=== PATIENT | female | born 1955 | race Caucasian/White ===

== ENCOUNTER 2016-07-06 03:35 | Inpatient (IN) | payer OTHER ==
[~2016-07-06] VITALS: Ht 157.5 cm; Wt 83.0 kg
[2016-07-06 03:48] VITALS: BP 139/87
--- NOTE | 2016-07-06 03:57 | NUR ---
PATIENT WHEELCHAIR ASSISTED TO ER BED 02
--- NOTE | 2016-07-06 03:58 | NUR ---
61 YEAR OLD FEMALE C/O LOWER ABD PAIN RADIATION TO BACK AND BLE X3 WEEKS, PER PATINET HAS BEEN SEEN BY DR. LONGORIA FOR OVARIAN CYST. NO SOB/DISTRESS NOTED, ED EVALATES AT BEDSIDE.
[2016-07-06] MEDS ORDERED: fentaNYL 0.05 MG/ML VIAL IVP ONE (04:15)
[2016-07-06] MEDS ORDERED: NACL 0.9% 1,000 ML IV ONE (04:15)
[2016-07-06] MEDS ORDERED: GLUCOTROL10 MG PO (04:37)
[2016-07-06] MEDS ORDERED: GLUCOPHAGE XR500 MG PO (04:37)
[2016-07-06] MEDS ORDERED: TOPROL XL25 MG PO (04:37)
[2016-07-06] MEDS ORDERED: BENICAR40 MG PO (04:37)
[2016-07-06] MEDS ORDERED: NORVASC10 MG PO (04:37)
--- NOTE | 2016-07-06 04:46 | NUR ---
TRANSFER BACK FROM US.
--- NOTE | 2016-07-06 04:56 | NUR ---
Patient will be admitted to care of DR. Roddy LONGORIA. Admited to MED-S[facility]. Will go to room 111A. Belongings list completed. Report to LEATHA SANCHEZ.
[2016-07-06] MEDS ORDERED: ONDANSETRON 4 MG/2 ML VIAL IVP ONE ×2 (05:00→08:49)
[2016-07-06 05:15] VITALS: BP 135/74
--- NOTE | 2016-07-06 05:15 | NUR ---
PT ARRIVED TO UNIT VIA WHEELCHAIR. INITIAL ASSESSMENT COMPLETED. PT AAOX4. PT DENIES PAIN AT THIS TIME. PT'S VS 135/75, HR 72, O2 SAT 96%, R 20, T 98.3. ORIENTED PT TO ROOM AND SURROUNDINGS AND USE OF CALL LIGHT. PT'S SKIN IS INTACT. MRSA DONE AND SENT TO LAB. SAFETY MEASURES IN PLACE, WILL CONTINUE TO MONITOR PT. EXPLAINED PLAN OF CARE TO PT AND SHE VERBALIZES UNDERSTANDING.
--- NOTE | 2016-07-06 06:39 | NUR ---
PT RESTING IN BED NOW, DENIES ANY PAIN, WILL CONTINUE TO MONITOR PT.
--- NOTE | 2016-07-06 07:00 | NUR ---
DR. Jaxson LONGORIA. IN TO SEE PT AND EXPLAINED THE PROCEDURE PT WILL HAVE. CONSENT SIGNED.
--- NOTE | 2016-07-06 07:10 | NUR ---
REPORT GIVEN TO LEATHA Hernandez FOR CONTINUITY OF CARE.
--- NOTE | 2016-07-06 07:11 | NUR ---
RECEIVED REPORT FROM LEATHA SANCHEZ. PT IS AAOX4, PT ON ROOM AIR WITH NO S/S OF DISTRESS NOTED. IV TO RIGHT AC #20, PATENT AND INTACT. NO N/V OR PAIN INDICATED. SKIN INTACT. ALL SAFETY PRECAUTIONS IN PLACE, SIDE RAILSX2, BED IN LOW POSITION, AND CALL LIGHT WITHIN REACH. WILL CONTINUE TO MONITOR.
--- NOTE | 2016-07-06 07:25 | NUR ---
DR LONGORIA IN TO SEE PT. PT TO HAVE SURGERY. WILL FOLLOW UP.
--- NOTE | 2016-07-06 07:38 | NUR ---
PT TAKEN OUT OF UNIT TO SURGERY.
[2016-07-06] MEDS ORDERED: ACETAMINOPHEN/CODEINE 300/30MG 1 TAB PO PRN (07:40)
--- NOTE | 2016-07-06 08:13 | NUR ---
PATIENT HAS BEEN SCREENED AND CATEGORIZED MODERATE NUTRITION RISK. PATIENT WILL BE SEEN WITHIN 3-5 DAYS OF ADMISSION. 07/08/16-07/10/[address]
[2016-07-06] MEDS ORDERED: GLYCOPYRROLATE 0.2 MG/ML VIAL IV ONE (08:49)
[2016-07-06] MEDS ORDERED: ROCURONIUM 50 MG/5 ML VIAL IV ONE (08:49)
[2016-07-06] MEDS ORDERED: KETOROLAC 30 MG/ML VIAL IVP ONE (08:49)
[2016-07-06] MEDS ORDERED: PROPOFOL 200 MG/20 ML VIAL IV ONE (08:49)
[2016-07-06] MEDS ORDERED: DEXAMETHASONE 4 MG/ML VIAL IVP ONE (08:49)
[2016-07-06] MEDS ORDERED: PHENYLEPHRINE 10 MG/ML VIAL IM ONE (08:49)
[2016-07-06] MEDS ORDERED: DESFLURANE 240 ML BTL INH ONE (08:49)
[2016-07-06] MEDS ORDERED: fentaNYL 0.05 MG/ML VIAL ONE (08:50)
[2016-07-06] MEDS ORDERED: HYDROmorphone 1 MG/ML AMP IVP PRN (09:05)
[2016-07-06] MEDS ORDERED: ONDANSETRON 4 MG/2 ML VIAL IVP PRN (09:05)
[2016-07-06] MEDS: BUPIVACAINE-MPF/EPI 0.5% 30 ML VIAL INJ ONE ×2 (09:29→09:33)
[2016-07-06] MEDS: HYDROmorphone PFS 2 MG/ML SYR ONE ×8 (09:33→10:20)
[2016-07-06] MEDS ORDERED: METOCLOPRAMIDE 10 MG/2 ML INJ VIAL IVP PRN (10:20)
[2016-07-06 10:50] VITALS: BP 92/53
--- NOTE | 2016-07-06 10:50 | NUR ---
PT ARRIVED TO UNIT FROM SURGERY. PT IS AAOX4. PT ON ROOM AIR O2 SAT AT 94%. GUERRA CATHETER IN PLACE. DRESSING NOTED TO LOWER ABDOMEN. NO N/V OR PAIN AT THIS TIME. ALL SAFETY PRECAUTIONS IN PLACE, SIDE RAILSX2, BED IN LOW POSITION, AND CALL LIGHT WITHIN REACH. WILL CONTINUE TO MONITOR.
--- NOTE | 2016-07-06 10:55 | NUR ---
PROVIDED PT ORAL CARE, PT COMPLAINING OF DRY MOUTH.
--- NOTE | 2016-07-06 12:22 | NUR ---
PT TOLERATED ICE CHIPS WELL. BP 93/56, HR 61, O2 SAT AT 93%. WILL CONTINUE TO MONITOR.
[2016-07-06] MEDS: ONDANSETRON 4 MG/2 ML VIAL IVP PRN (13:35)
--- NOTE | 2016-07-06 13:38 | NUR ---
COVERING FOR NURSE TAM V RN. IVP ZOFRAN GIVEN FOR NAUSEA. PATIENT TOLERATED WELL. NO SIGN OF DISTRESS NOTED. HEAD OF BED ELEVATED FOR SAFETY. CALL LIGHT WITHIN REACH. NURSE TAM MADE AWARE.
--- NOTE | 2016-07-06 14:16 | NUR ---
PT RESTING WITH NO NAUSEA NOTED AT THIS TIME.
--- NOTE | 2016-07-06 14:43 | NUR ---
CM NOTE INITIAL REVIEW FAXED TO [facility] (FAX# [phone], ATTN: SAKSHI #[phone] [id number]) AND [facility] (FAX# [phone])
--- NOTE | 2016-07-06 14:50 | NUR ---
PT STATED NAUSEA HAS RESOLVED.
--- NOTE | 2016-07-06 15:50 | NUR ---
RECEIVED CALL FROM DR LONGORIA. ORDERED TO ADD PHENERGAN IVP Q4HR PRN FOR NAUSEA, AND NORMAL SALINE 100ML/HR FOR IV FLUIDS. WILL FOLLOW UP ON ORDERS.
[2016-07-06] MEDS: MORPHINE SULFATE 4 MG/ML SYR IM/IVP PRN ×2 (15:51→21:34)
[2016-07-06 16:00] VITALS: BP 111/64
--- NOTE | 2016-07-06 16:00 | NUR ---
PT C/O 10/10 PAIN TO LOWER ABDOMEN. BP 122/60, HR 67. ADMINISTERED MORPHINE ORDERED. WILL CONTINUE TO MONITOR.
[2016-07-06] MEDS: NACL 0.9% 1,000 ML IV SCH (16:20)
[2016-07-06] MEDS: PROMETHAZINE 25 MG/ML VIAL IVP PRN (16:27)
--- NOTE | 2016-07-06 16:38 | NUR ---
PT C/O NAUSEA. ADMINISTERED PHENERGAN ORDERED. PT TOLERATED WELL. WILL CONTINUE TO MONITOR.
--- NOTE | 2016-07-06 17:45 | NUR ---
PT SLEEPING WITH NO DISTRESS NOTED AT THIS TIME.
--- NOTE | 2016-07-06 19:20 | NUR ---
ENDORSED CARE TO LEATHA SANCHEZ. PT IN STABLE CONDITION.
--- NOTE | 2016-07-06 19:35 | NUR ---
RECEIVED REPORT FROM LEATHA Hernandez AT BEDSIDE. PT AAOX4. PT PT ON ROOM AIR, PT HAS GUERRA CATHETER IN PLACE. DRESSING NOTED TO LOWER ABDOMEN DRY AND INTACT S/P SURGICAL PROCEDURE. PT HAS SCDS ON. AT BEDSIDE. ORIENTED PT TO ROOM AND SURROUNDING AND USE OF CALL LIGHT. SAFETY MEASURES IN PLACE. WILL CONTINUE TO MONITOR PT. Addendum: 07/06/16 at 2010 by Corinne Angelo RN PT HAS IV TO RIGHT AC G 20; ASYMPTOMATIC, PATENT AND INTACT INFUSING FLUIDS WELL.
--- NOTE | 2016-07-06 21:33 | NUR ---
PT COMPLAINING OF PAIN 01/22. VS STABLE, WILL MEDICATE ORDERED.
--- NOTE | 2016-07-06 23:36 | NUR ---
PT SLEEPING AT THIS TIME, NO SIGNS OF DISTRESS NOTED. WILL CONTINUE TO MONITOR PT.
[2016-07-07] VITALS: BP 117/67
--- NOTE | 2016-07-07 00:33 | NUR ---
PT COMPLAINING OF PAIN ON SURGERY SITE 12/22. VS STABLE, WILL MEDICATE ORDERED.
[2016-07-07] MEDS: MORPHINE SULFATE 4 MG/ML SYR IM/IVP PRN ×5 (00:36→21:07)
--- NOTE | 2016-07-07 01:18 | NUR ---
PT COMPLAINING OF PAIN 11/21. VS STABLE, WILL GIVE MOTRIN ORDERED. Addendum: 07/07/16 at 0119 by Corinne Angelo RN WRONG ENTRY IN WRONG PT.
[2016-07-07] MEDS: NACL 0.9% 1,000 ML IV SCH ×3 (03:19→22:05)
--- NOTE | 2016-07-07 03:35 | NUR ---
PT REQUESTING SOME ICE CHIPS. WILL PROVIDE HER WITH HER NEEDS. CALL LIGHT WITHIN REACH.
--- NOTE | 2016-07-07 04:43 | NUR ---
PT SLEEPING, NO SIGNS OF DISTRESS NOTED. WILL CONTINUE TO MONITOR PT.
--- NOTE | 2016-07-07 06:15 | NUR ---
LEAD FRONT END DEVELOPER AT BEDSIDE DRAWING MORNING LABS. PT STABLE, WILL CONTINUE TO MONITOR PT.
--- NOTE | 2016-07-07 07:20 | NUR ---
ENDORSED PT IN STABLE CONDITION JEFFREY IKRBY FOR CONTINUITY OF CARE.
--- NOTE | 2016-07-07 07:21 | NUR ---
RECEIVED PT ASLEEP BUT EASILY AWAKEN, LYING ON BED, NO S/S OF RESPIRATORY DISTRESS. AAOX4, WITH IV ON RIGHT AC 20G INFUSING FLUIDS WELL. WITH LOWER ABDOMINAL INCISION COVERED WITH DRY DRESSING, CLEAN AND INTACT. DISCUSSED PLAN OF CARE, PT VERBALIZED UNDERSTANDING. CALL LIGHT WITHIN REACH, WILL CONTINUE TO MONITOR.
[2016-07-07 08:00] VITALS: BP 106/68
--- NOTE | 2016-07-07 11:48 | NUR ---
PT COMPLAINED OF PAIN, MORPHINE GIVEN. O2 SAT AT 93%
--- NOTE | 2016-07-07 11:49 | NUR ---
GUERRA CATHETER DISCONTINUED, PINK TINGE URINE NOTED ON TUBING. PAGED. DR. LONGORIA
--- NOTE | 2016-07-07 13:52 | NUR ---
PT ABLE TO SIT AT EDGE OF BED THEN BACK TO BED. TOLERATED WELL. NOW SITTING ON BED WITH AT BEDSIDE. NO SIGNS OF DISTRESS NOTED. CALL LIGHT WITHIN REACH, WILL CONTINUE TO MONITOR.
--- NOTE | 2016-07-07 15:24 | NUR ---
PT AMBULATED FROM BED TO RESTROOM, WAS NOT ABLE TO URINATE, BACK TO BED AGAIN. COMPLAINED OF PAIN, MORPHINE GIVEN.
[2016-07-07 16:00] VITALS: BP 120/65
--- NOTE | 2016-07-07 17:44 | NUR ---
PT AMBULATED FROM BED TO COMMODE BUT STILL NOT ABLE TO URINATE. ASSISTED PT BACK TO BED.
--- NOTE | 2016-07-07 17:59 | NUR ---
PT UNABLE TO VOID, NOTIFIED DR. Roddy LONGORIA, HOLD THE DISCHARGE ORDER AND INSERT GUERRA CATHETER.
--- NOTE | 2016-07-07 18:19 | NUR ---
GUERRA CATHETER INSERTED, DRAINED 200ML OF YELLOW URINE. O2 SAT AT 88%, PT PUT ON O2 2LPM NC PER ORDERS.
--- NOTE | 2016-07-07 19:30 | NUR ---
ENDORSED PT TO DERICK, PROC TECH IN STABLE CONDITION. O2 SAT AT THIS TIME AT 98% ON O2 2LPM NC
--- NOTE | 2016-07-07 19:31 | NUR ---
RECD. RESTING IN BED, AWAKE, A/OX4. RESPIRATION EVEN AND UNLABORED. ON AT 2 LITERS VIA N/C. IV OF NS AT 100 ML/HR INFUSING. INCISION IN THE LOWER ABDOMEN COVERED WITH DRESSING, DRY AND INTACT. F/C PATENT DRAINING CLEAR YELLOW URINE. PAIN IN THE SITE 05/24, WILL MEDICATE ORDERED. PLAN OF CARE FOR THE SHIFT DISCUSSED. VERBALIZED UNDERSTANDING. ENCOURAGED TO TURN TO SIDES OCCASIONALLY. SAFETY MEASURES ENFORCED.
--- NOTE | 2016-07-07 20:00 | NUR ---
Patient's Plan of Care was discussed and reviewed with FINANCIAL COMPLIANCE EXAMINER: DERICK DALAL
--- NOTE | 2016-07-07 20:30 | NUR ---
CLAIMED SHE IS PASSING GAS BY BURPING, NO BM YET. ENCOURAGED TO AMBULATE MORE.
[2016-07-07] MEDS: ONDANSETRON 4 MG/2 ML VIAL IVP PRN (21:06)
--- NOTE | 2016-07-07 21:06 | NUR ---
NAUSEATED, MEDICATED WITH ZOFRAN 4 MG. IVP BY LEATHA MEYERS.
--- NOTE | 2016-07-07 21:36 | NUR ---
NO NAUSEA NOTED, RESTING COMFORTABLY IN BED.
--- NOTE | 2016-07-07 22:30 | NUR ---
SLEEPING COMFORTABLY IN BED.
[2016-07-08] VITALS: BP 131/66
[2016-07-08] MEDS: PROMETHAZINE 25 MG/ML VIAL IVP PRN ×2 (01:04→13:24)
--- NOTE | 2016-07-08 01:04 | NUR ---
NAUSEATED, MEDICATED PHENERGAN 25 MG. IVP BY CHARGE NURSE ONEIL.
--- NOTE | 2016-07-08 01:35 | NUR ---
NO NAUSEA NOTED, SLEEPING COMFORTABLY IN BED.
[2016-07-08] MEDS: SIMETHICONE 80 MG TAB.CHEW PO PRN ×2 (07:01→16:01)
--- NOTE | 2016-07-08 07:01 | NUR ---
COMPLAINT OF FEELING BLOATED, MEDICATED WITH MYLICON 80 MG. PO.
[2016-07-08] MEDS ORDERED: METOCLOPRAMIDE 10 MG/2 ML INJ VIAL IVP PRN (07:25)
--- NOTE | 2016-07-08 07:30 | NUR ---
DECREASED FEELING OF BLOATED, DR. Roddy LONGORIA CAME AND ORDERED TO DISCONTINUE F/C, AND GIVE REGLAN IV. PATIENT CAN GO HOME IF ABLE TO VOID. ENDORSED TO LEATHA GUNTER FOR CONTINUITY OF CARE.
--- NOTE | 2016-07-08 07:31 | NUR ---
PT RECEIVED FROM CORTNEY SEPULVEDA ASLEEP BUT EASILY AWAKEN, AAOX4, WITH IV ACCESS ON RIGHT AC 20G INFUSING FLUIDS WELL. WITH GUERRA CATHETER DRAINING YELLOWISH URINE. WITH DRY DRESSING ON LOWER ABDOMEN COVERED WITH ABDOMINAL BINDER. WITH O2 2LPM VIA NC. DISCUSSED PLAN OF CARE. PT VERBALIZED UNDERSTANDING. PT COMPLAINS OF NAUSEA, WILL; MEDICATE WITH REGLAN. DR. LONGORIA IN THE ROOM WITH THE PATIENT. CALL LIGHT WITHIN REACH, WILL CONTINUE TO MONITOR.
--- NOTE | 2016-07-08 07:45 | NUR ---
GUERRA CATHETER REMOVED. PT TOLERATED WELL. ASSISTED PT TO CHAIR. ENCOURAGED TO KEEP ON AMBULATING.
[2016-07-08 08:00] VITALS: BP 124/75
[2016-07-08] MEDS: NACL 0.9% 1,000 ML IV SCH ×2 (08:54→17:52)
--- NOTE | 2016-07-08 08:54 | NUR ---
SPOKE TO TEE JACOB TO ADVANCE TO REGULAR DIET.
[2016-07-08] MEDS ORDERED: MUPIROCIN 2% OINT 22 GM TUBE TP SCH (09:00)
[2016-07-08] MEDS ORDERED: CHLORHEXADINE GLUC 2% CLOTH TP SCH (09:00)
--- NOTE | 2016-07-08 10:05 | NUR ---
PT ASLEEP AND LYING ON BED. NO S/S OF DISTRESS. ALL NEEDS MET AT THIS TIME. CALL LIGHT WITHIN REACH, WILL CONTINUE TO MONITOR.
--- NOTE | 2016-07-08 11:10 | NUR ---
PT ABLE TO VOID YELLOWISH URINE.
--- NOTE | 2016-07-08 13:18 | NUR ---
ASSISTED PT TO COMMODE, ABLE TO VOID YELLOWISH URINE. ASSISTED PT TO TRANSFER TO CHAIR. ENCOURAGED TO EAT. COMPLAINED OF NAUSEA, WILL GIVE PHENERGAN
--- NOTE | 2016-07-08 14:04 | NUR ---
PT ASLEEP ON BED WITH O2 SAT 93% ON ROOM AIR. CALL LIGHT WITHIN REACH, WILL CONTINUE TO MONITOR.
--- NOTE | 2016-07-08 14:22 | NUR ---
CONCURRENT REVIEW FAXED TO [facility] [phone]
--- NOTE | 2016-07-08 15:22 | NUR ---
PT ASLEEP ON BED, NO SIGNS OF DISTRESS AT THIS TIME. ALL NEEDS MET, WILL CONTINUE TO MONITOR.
[2016-07-08 16:00] VITALS: BP 133/77
--- NOTE | 2016-07-08 17:12 | NUR ---
PT AMBULATED TO RESTROOM WITH ASSIST, ABLE TO VOID. ALL NEEDS MET AT THIS TIME, WILL CONTINUE TO MONITOR.
--- NOTE | 2016-07-08 19:03 | NUR ---
DISCHARGE INSTRUCTIONS AND PRESCRIPTIONS GIVEN, PT VERBALIZED UNDERSTANDING. WOUND DRESSING CHANGED AND DISCHARGE PHOTO TAKEN. PT GIVEN DRESSING SUPPLIES AND CHLORHEXIDINE CLOTH. ID WRISTBAND AND IV ACCESS REMOVED, CATHETER TIP INTACT. PT LEFT UNIT IN WHEELCHAIR IN STABLE CONDITION ACCOMPANIED BY .
== END 2016-07-08 19:03 | disposition home or self-care (01) | DRG 513 ==
LOC: MED 03:35 → MTU 04:48
PROVIDERS: ADMIT Obstetrics & Gynecology; ATTEND Obstetrics & Gynecology
PROC: 0UB00ZZ Excision of Right Ovary, Open Approach (ICD-10-PCS; principal; 2016-07-06 13:35)
DX: N83.201 Unspecified ovarian cyst, right side (principal); G89.29 Other chronic pain; Z98.890 Other specified postprocedural states; Z90.710 Acquired absence of both cervix and uterus